=== PATIENT | female | born 1970 | race Caucasian/White ===

== ENCOUNTER → 2021-09-08 16:43 | Outpatient (CLI) | payer OTHER, SELFPAY ==
[2021-09-08 17:21] LABS: COVID19 -Nasal RAPID Negative (Negative)
== END ==
PROVIDERS: Referring Provider Family Medicine; Visit Provider Family Medicine
DX: Z20.822 Contact with and (suspected) exposure to COVID-19 (principal)
CPT/HCPCS: 87635

== ENCOUNTER → 2022-12-15 12:53 | Outpatient (CLI) | payer OTHER, SELFPAY ==
--- NOTE | 2022-12-15 12:55 | DI.RAD.S_ITS ---
PROCEDURE: XR FOOT RT MIN 3V INDICATIONS: Right foot injury TECHNIQUE: 3 views of the foot were acquired. COMPARISON: None. FINDINGS: Bones: No fractures or dislocations. Banding at the distal tibia/fibula. No suspicious bony lesions. Small plantar calcaneal spur. Soft tissues: No tibiotalar joint effusion. Achilles tendon appears normal. IMPRESSION: No acute osseous abnormality. Dictated by: Hussain Goyal M.D. on 12/15/2022 at 13:19 Approved by: Hussain Goyal M.D. on 12/15/2022 at 13:22
== END ==
PROVIDERS: PCP Student in an Organized Health Care Education/Training Program; Referring Provider Registered Nurse; Visit Provider Registered Nurse
DX: M79.671 Pain in right foot (principal)
CPT/HCPCS: 73630